=== PATIENT | male | born 1930 | race Caucasian/White ===

== ENCOUNTER 2017-11-06 17:37 | Emergency (ER) | payer OTHER ==
[~2017-11-06] VITALS: Ht 182.9 cm; Wt 77.1 kg
--- NOTE | 2017-11-06 18:00 | NUR ---
87 YO FEMALE BB RA FOR SYNCOPE EPISODE. PATIENT STATES HE WAS USING THE RESTOOM WHEN HE HAD A SYNCOPE EPISODE, CALLED 911 FOR EVAL. PATIENT DENIES ANY CP/SOB/N/V OR ANY OTHER MEDICAL COMPLAINTS. PATIENT ASSISTED TO ER BED, PATIENT WAS GOWNED,PLACED ON EDUCATIONAL ADVISER. AWAITING ORDERS FROM PROVIDER, WILL CONTINUE TO MONITOR
[2017-11-06 18:33] LABS: BASOPHILS # (AUTO) 0.1 /CMM (0.0-0.2); BASOPHILS % (AUTO) 0.8 % (0.0-2.0); EOSINOPHILS % (AUTO) 2.5 % (0.0-6.0); HEMATOCRIT 39 % (39-51); HEMOGLOBIN 13.9 g/dL (13.5-17.5); LYMPHOCYTES % (AUTO) 38.6 % (20.0-44.0); MEAN CORPUSCULAR HGB CONC 35 g/dl (31.0-36.0); MEAN CORPUSCULAR VOLUME 87 fL (80-96); MONOCYTES # (AUTO) 0.7 /CMM (0.1-1.30); NEUTROPHILS # (AUTO) 3.8 /CMM (1.8-8.9); NEUTROPHILS % (AUTO) 49.1 % (43.0-81.0); PLATELET COUNT (AUTO) 195 /CMM (150-450); RDW COEFFICIENT OF VARIATION 13.5 (11.5-15.0); RED BLOOD CELL COUNT(AUTO) 4.52 MIL/uL (4.5-6.0); WHITE BLOOD COUNT (AUTO) 7.8 K/uL (4.3-11.0)
[2017-11-06 18:47] LABS: CALCIUM, SERUM 9.3 mg/dL (8.5-10.1); CARBON DIOXIDE 23 mmol/L (21-32); CHLORIDE 104 mmol/L (98-107); GLUCOSE 196 mg/dL (74-106); POTASSIUM 3.9 mmol/L (3.5-5.1); SODIUM SERUM 138 mmol/L (136-145); UREA NITROGEN, BLOOD 12 mg/dL (7-18)
[2017-11-06 18:53] LABS: ALANINE AMINOTRANSFERASE 28 U/L (12-78); ALBUMIN 3.7 g/dL (3.4-5.0); ALKALINE PHOSPHATASE 80 U/L (46-116); ASPARTATE AMINOTRANSFERASE 22 U/L (15-37); BILIRUBIN,DIRECT 0.1 mg/dL (0.0-0.2); BILIRUBIN,TOTAL 0.4 mg/dL (0.2-1.0)
[2017-11-06 18:57] LABS: TROPONIN I < 0.017 ng/mL (0.00-0.056)
[2017-11-06 19:17] VITALS: BP 148/72
--- NOTE | 2017-11-06 19:47 | NUR ---
[facility] , EXPECTING A CALL BACK FROM [facility] [place]
--- NOTE | 2017-11-06 21:33 | NUR ---
[facility] CALLED PATIENT WILL BE TRANSFERED TO [facility] ACCEPTED BY DR CHAHAL ROOM [id number] ETA [id number]
--- NOTE | 2017-11-06 22:42 | NUR ---
[facility] BEDSIDE FOR PT TRANSFER. REPORT GIVEN FOR JON
--- NOTE | 2017-11-06 22:47 | NUR ---
REPORT GIVEN TO MERLINE TOMLIN FOR JON. PT TRANSPORTED OUT OF ER BY EMS.
--- NOTE | 2017-11-06 22:47 | NUR ---
Patient Tranfers to outside Facility Physician:FELA Location:[facility] ROOM 4056-B VSS UPON DISCHARGE
== END 2017-11-06 22:49 | disposition short-term general hospital (02) ==
LOC: ER 17:38
DX: R55 Syncope and collapse (principal); I10 Essential (primary) hypertension; E11.9 Type 2 diabetes mellitus without complications
CPT/HCPCS: 36415; 70450-TC; 71045-TC; 80048-TC; 80076-TC; 84484-TC; 85025-TC; A4606; Z7610